=== PATIENT | male | born 1955 ===

== ENCOUNTER 2021-09-18 01:34 | Observation (INO) ==
[2021-09-18 02:46] LABS: ABS Eosinophils 0.3 10^3/ul (0-0.6); ABS Lymphocytes 0.5 10^3/ul (1.0-4.8); ABS Monocytes 0.9 10^3/ul (0-0.8); Eosinophil % 2.7 %; Hematocrit 41 % (42-52); Hemoglobin 13.9 g/dL (14.0-18.0); Lymphocyte % 5.3 %; Mean Corpuscular HGB Conc 34 g/dL (31-36); Mean Corpuscular Hemoglobin 29 pg (27-31); Mean Corpuscular Volume 84 fL (80-94); Mean Platelet Volume 7.2 fL (7.4-10.4); Platelet Count 235 10^3/uL (150-450); Red Blood Count 4.87 10^6 /uL (4.18-5.48); Red Cell Distribution Width 13 % (10-15); White Blood Count 9.7 10^3/uL (3.5-10.8)
[2021-09-18 02:55] LABS: INR 1.12 (0.86-1.15)
[2021-09-18 03:08] LABS: ALT 14 U/L (7-52); AST 20 U/L (13-39); Albumin 3.7 g/dL (3.2-5.2); Albumin/Globulin Ratio 1.2 (1-3); Alkaline Phosphatase 85 U/L (35-149); Anion Gap 6 mmol/L (2-11); Blood Urea Nitrogen 22 mg/dL (6-24); CO2 Carbon Dioxide 26 mmol/L (22-32); Calcium 9.3 mg/dL (8.6-10.3); Chloride 106 mmol/L (101-111); Creatine Kinase 41 U/L (10-223); Globulin 3.1 g/dL (2-4); Glucose 160 mg/dL (70-100); Magnesium 1.8 mg/dL (1.9-2.7); Potassium 3.9 mmol/L (3.5-5.0); Sodium 138 mmol/L (135-145); Total Protein 6.8 g/dL (6.4-8.9); eGFR CKD-EPI 46.8 (>60)
[2021-09-18 03:10] LABS: Troponin I 0.01 ng/mL (<0.03)
[2021-09-18] MEDS ORDERED: Iodixanol (CONTRAST) 320 MG/ML 100 ML SDV IV ONE (03:20)
[2021-09-18] MEDS ORDERED: Potassium Chlor 20 meq TAB.ER PO ONE (09:11)
[2021-09-18] MEDS ORDERED: Dextrose 50% Syringe 50 ml 25 GM/50 ML SYRINGE IV PUSH PRN (09:12)
[2021-09-18] MEDS ORDERED: Al Hydrox/Mg Hydrox/Simet LIQ 30 ML UDC PO ONE (09:24)
[2021-09-18 12:28] LABS: TSH Ultra Thyroid Stim Horm 2.21 mcIU/mL (0.34-5.60)
[2021-09-18] MEDS: Magnesium Sulfate IV 1GM/100ML 1 GM/100 ML BAG IV ONE ×2 (13:10→13:37)
[2021-09-18] MEDS ORDERED: Regadenoson 0.4 MG/5 ML SYRINGE ONE (13:14)
[2021-09-18 16:56] LABS: C Reactive Protein 8.71 mg/L (<8.01)
[2021-09-18 17:47] LABS: Rheumatoid Factor < 10 IU/mL (<15)
[2021-09-18] MEDS ORDERED: Insulin GLARGINE 100 un/ml 10 ml VIAL SUBCUT SCH (18:00)
[2021-09-18] MEDS: Heparin 5000 UNITS/ML 1 mL VIAL SUBCUT SCH (23:47)
[2021-09-19] MEDS: Heparin 5000 UNITS/ML 1 mL VIAL SUBCUT SCH (05:46)
[2021-09-19 06:25] LABS: ABS Eosinophils 0.2 10^3/ul (0-0.6); ABS Lymphocytes 0.9 10^3/ul (1.0-4.8); ABS Monocytes 0.8 10^3/ul (0-0.8); Eosinophil % 2.8 %; Hematocrit 40 % (42-52); Hemoglobin 13.8 g/dL (14.0-18.0); Lymphocyte % 12.9 %; Mean Corpuscular HGB Conc 34 g/dL (31-36); Mean Corpuscular Hemoglobin 29 pg (27-31); Mean Corpuscular Volume 83 fL (80-94); Mean Platelet Volume 7.4 fL (7.4-10.4); Platelet Count 241 10^3/uL (150-450); Red Blood Count 4.85 10^6 /uL (4.18-5.48); Red Cell Distribution Width 13 % (10-15); White Blood Count 6.8 10^3/uL (3.5-10.8)
[2021-09-19 06:41] LABS: Potassium 3.8 mmol/L (3.5-5.0); eGFR CKD-EPI 47.2 (>60)
[2021-09-19 09:35] LABS: Erythrocyte Sed Rate 37 mm/Hr (0-19)
[2021-09-19 12:07] VITALS: BP 119/83
[2021-09-22 17:17] LABS: Immunoglobulin G 1170 mg/dL (767 - 1590)
[2021-09-22 22:53] LABS: C-ANCA Negative (Negative); P-ANCA Negative (Negative)
== END 2021-09-19 15:20 | disposition home or self-care (01) ==
LOC: ED 01:34 → EDHOLD 01:34 → MEDTELE 16:38
PROVIDERS: ADMIT Student in an Organized Health Care Education/Training Program; ATTEND Student in an Organized Health Care Education/Training Program